=== PATIENT | female | born 1955 | race Caucasian/White ===

== ENCOUNTER 2018-06-04 08:25 | Outpatient (CLI) | payer OTHER ==
--- NOTE | 2018-06-04 08:58 | CT ---
CT OF THE BRAIN WITHOUT CONTRAST: Comparison: None. History: Dull headache for the past two weeks. Technique: Multiple contiguous axial images were obtained in a CT of the brain without contrast. FINDINGS: The brain is normal in morphology and attenuation without focal lesions or confluent areas of infarct ion. There is no evidence of hydrocephalus, intracranial hemorrhage or extraaxial fluid collections. The calvarium and overlying soft tissues are unremarkable. The visualized paranasal sinuses and masto id air cells are well aerated. IMPRESSION: No evidence of acute intracranial abnormality. POS: [facility]
== END 2018-06-04 08:26 | disposition home or self-care (01) ==
LOC: SCSCT 08:25
PROVIDERS: ATTEND Family Medicine
DX: S09.90XA Unspecified injury of head, initial encounter (principal)
CPT/HCPCS: 70450

== ENCOUNTER 2025-03-02 09:46 | Outpatient (CLI) | payer MEDICARE | END 2025-03-02 09:47 | disposition home or self-care (01) | LOC: RAD 09:46 | PROVIDERS: ATTEND Specialist | DX: I69.891 Dysphagia following other cerebrovascular disease (principal); R13.19 Other dysphagia; K21.9 Gastro-esophageal reflux disease without esophagitis | CPT/HCPCS: 74230 ==